=== PATIENT | female | born 1995 | race Caucasian/White ===

== ENCOUNTER → 2017-11-25 | Outpatient (CLI) | payer BC ==
[~2017-11-25] MED LIST: LO LTAB PO
== END ==
LOC: CPRE 14:24
PROVIDERS: ATTEND Obstetrics & Gynecology
DX: Z01.812 Encounter for preprocedural laboratory examination (principal); Z01.818 Encounter for other preprocedural examination; R10.2 Pelvic and perineal pain

== ENCOUNTER → 2017-11-27 | Day surgery (SDC) | payer BC ==
[~2017-11-27] VITALS: Ht 160 cm; Wt 60.2 kg
[~2017-11-27] MED LIST changes: +*morphine SULFATE 4 MG/ML PERIprocedure ONLY ONE; +ACETAMINOPHEN 1000 MG/100 ML 100 ML IV ONE; +ACETAMINOPHEN 1000 MG/100 ML 100 ML IV SCH; +APREPITANT 40 MG CAP ONE; +BUPIVACAINE/EPINEPHRINE 0.25% 50 ML VIAL ONE; +CHLORHEXIDINE GLUCONATE 2 % 1 PACK (2 CLOTHS) TOPICAL PRN; +DEXAMETHASONE SOD PHOS 4 MG/ML VIAL IV ONE; +DO NOT ADM ANY ANTICOAGULANT DRUGS PRN; +KETAMINE HCL 500 MG/10 ML VIAL ONE; +KETOROLAC TROMETHAMINE 30 MG/ML (IVP) VIAL IV PUSH ONE; +LACTATED RINGER'S 1000 ML INJ 1,000 ML IV ONE; +LACTATED RINGER'S 1000 ML IV PRN; +LIDOCAINE HCL 1% PF 5 ML SYRINGE OTHER ONE; +METOCLOPRAMIDE HCL 10 MG/2 ML VIAL IV PUSH PRN; +METOPROLOL TARTRATE 25 MG TAB PO PRN; +MIDAZOLAM HCL 2 MG/2 ML VIAL ONE; +ONDANSETRON HCL 4 MG/2 ML VIAL IV ONE; +OXYTOCIN 10 UNIT/ML AMP ONE; +PHENYLEPH/NS 1000 MCG/10 ML SYR IV ONE; +POVIDONE IODINE 5% (ANTISEPSIS KIT) 4 APPLICATIONS EACH NARE PRN; +PROPOFOL 200 MG/20 ML AMP IV ONE; +ROCURONIUM INJ 50 MG/5 ML SYRINGE IV PUSH ONE; +SODIUM CHLORID 0.9% 500 ML IV PRN; +SUGAMMADEX SODIUM 200 MG/2 ML VIAL IV PUSH ONE; +ceFAZolin 1,000 MG/NS 100 ML IV SCH; +ePHEDrine/NS 25 MG/5 ML SYRINGE IV ONE; +oxyCODONE/ACETAMINOPHEN 5 MG/325 MG TAB PO PRN
--- NOTE | 2017-11-27 09:22 | MH ---
cc: Jaime Recinos MD DATE OF ADMISSION: 11/27/2017 ADMITTING DIAGNOSIS: Pelvic pain. HISTORY OF PRESENT ILLNESS: The patient is a 22-year-old single white female, para 0 with a history of dysmenorrhea dating back to menarche at age 12. Her pain increases with her period, almost always left-sided and will decrease post-cycle. Often will trigger a bowel function and loose stools. She has tried OCPs and analgesics with minimal success. CT scans and test for PID have been negative. She is now admitted for surgical evaluation. PAST SURGICAL HISTORY: None. MEDICATIONS: OCPs, analgesics. ALLERGIES: NONE. TRANSFUSIONS: None. 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 OB HISTORY: None. SOCIAL HISTORY: She is single. She works at [employer] in [id number]. Alcohol, tobacco and drugs are none. FAMILY HISTORY: Pertinent for mom with hysterectomy for endometriosis and maternal sisters and grandmother diagnosed as well. PHYSICAL EXAMINATION: This is a well-nourished, well-developed white female. VITAL SIGNS: Stable. HEENT: Normal. CHEST: Clear. HEART: Regular rate. BREASTS: Symmetrical. ABDOMEN: Benign. PELVIC: Normal external genitalia and BUS. Vagina is normal. Cervix normal. Uterus is normal size, shape, anterior. No adnexal masses. ASSESSMENT: As above. PLAN: She is now admitted for diagnostic laparoscopy and treatment as indicated. While in the office, I explained the procedures, the risks, benefits and complications. The patient would like to proceed. MD DANIEL Kate/DL , 09:02 AM , 09:20 AM
--- NOTE | 2017-11-27 17:51 | MP ---
cc: Jaime Recinos MD DATE OF OPERATION: 11/27/2017 PREOPERATIVE DIAGNOSES: Pelvic pain, possible endometriosis. POSTOPERATIVE DIAGNOSES: Pelvic pain, primary dysmenorrhea. PROCEDURE PERFORMED: Laparoscopy. ANESTHESIA: General, ET. SURGEON: Jaime Recinos MD NETWORK TECHNICAL ANALYST: SAMPSON Betts ESTIMATED BLOOD LOSS: About 5 mL FLUIDS: 700 mL crystalloid. OBJECTIVE FINDINGS: Following induction of adequate general endotracheal anesthesia, patient was prepped and draped supine on the operating table in dorsal lithotomy position in sterile fashion with the bladder being drained by Hadley catheterization. Exam under anesthesia revealed a normal size, shape, anterior uterus. No adnexal masses. Heavy weighted speculum was placed in the posterior fornix of the vagina. Anterior lip of the cervix grasped with single-tooth tenaculum. Cervix, uterus sounded to 7 cm. Cath[place] cannula was placed. The speculum was removed. [employer]'s gloves were changed. The abdomen was opened through a 0.5 cm infraumbilical incision. A 5 port was placed followed by laparoscope attached to a cam. A second 5 was placed, left lower quadrant. Uterus was normal size, shape, anterior. Tubes and ovaries normal. [place]-de-sacs were clear. The liver was normal. Appendix was normal. The procedure was now terminated. Scope removed, gas allowed to escape. Each port was injected with 5 mL of 0.25% Marcaine with epinephrine and closed with 3-0 Monocryl. Vaginal inspection was performed. The acorn was removed. Tenaculum removed. Tenaculum site sutured with 3-0 chromic. All counts were correct. [facility] She was awakened and taken to recovery in good condition. MD DANIEL Kate/SB , 04:40 PM , 05:26 PM ELIZABETH
[2017-11-27 17:55] VITALS: BP 110/56; PULSE 67; RESP 18; TEMP 98.7; O2SAT 100
== END | disposition home or self-care (01) ==
LOC: HSDC 10:55
PROVIDERS: ATTEND Obstetrics & Gynecology
DX: R10.2 Pelvic and perineal pain (principal); N94.6 Dysmenorrhea, unspecified
CPT/HCPCS: 00840; 49320; J0131; J0690; J1100; J1885; J2250; J2270; J2370; J2405; J2590; J3010; J7120; J8501